=== PATIENT | female | born 1965 | race Caucasian/White ===

== ENCOUNTER 2023-07-09 08:16 | Outpatient (CLI) | payer OTHER, SELFPAY | END 2023-07-09 08:17 | disposition home or self-care (01) | PROVIDERS: PCP Nurse Practitioner Family; Visit Provider Nurse Practitioner Family | DX: N91.2 Amenorrhea, unspecified (principal); I10 Essential (primary) hypertension | CPT/HCPCS: 83001; 85025 ==

== ENCOUNTER 2023-08-08 14:41 | Outpatient (CLI) | payer OTHER, SELFPAY ==
--- NOTE | 2023-08-08 15:00 | US_ITS ---
Patient: PETER VALLADARES Facility:?[facility] Patient ID:?[id number] Site Patient ID:?[id number]. Site :?[id number] Study:?US-Pelvis PELVIS TA & TV-08/08/2023 5:23:03 PM Ordering Physician:KENY LOPEZ Final Report: INDICATION: Postmenopausal bleeding. COMPARISON: None available. FINDINGS: Transvaginal and transabdominal ultrasound examination of the female pelvis was performed. Initial examination is performed with transabdominal technique and transvaginal technique is used for better visualization of the pelvic structures. The uterus is anteverted with multiple small fibroids, without enlargement. It measures 7.1 x 3.1 x 5.2 cm. The largest fibroid is in the left mid fundal region measuring 1.5 x 1.2 x 2.0 centimeters. The next largest fibroid is in the posterior mid fundus with calcifications measuring 1.4 x 1.2 x 1.4 centimeters. An adjacent posterior mid left fibroid measures 0.8 x 0.5 x 0.9 centimeters. There is a superior posterior subserosal fibroid measuring 1.2 x 1.0 x 1.2 centimeters. A superior posterior submucosal fibroid measures 0.8 x 0.7 x 0.8 centimeters. An anterior mid fundal left fibroid measures 0.9 x 1.0 x 1.2 centimeters. None of these fibroids result in distortion of the uterine cavity. The endometrial lining is normal in thickness at 3 mm. There is a small amount of fluid in the uterine cavity. The ovaries are normal in appearance and size, the right measuring 2.8 x 1.4 x 2.2 cm and the left measuring 3.2 x 1.2 x 1 9 cm. There is normal color doppler flow in both ovaries. There is no sign of free fluid in the pelvis. IMPRESSION: 1. Multiple uterine fibroids without enlargement of the uterus or distortion of the uterine cavity. 2. Normal thickness of the endometrial lining. There is a small amount of fluid in the uterine cavity, nonspecific. 3. Normal appearance of the ovaries. Dictated by Riley Bright MD @ 08/09/2023 11:15:02 AM Signed by:?Riley Bright MD @08/09/2023 11:15:02 AM (Electronic Signature)
== END 2023-08-08 14:42 | disposition home or self-care (01) ==
LOC: US 14:41
PROVIDERS: PCP Nurse Practitioner Family; Visit Provider Physician Assistant
DX: N95.0 Postmenopausal bleeding (principal); D25.9 Leiomyoma of uterus, unspecified
CPT/HCPCS: 76830; 76856

== ENCOUNTER 2023-10-09 15:24 | Outpatient (CLI) | payer OTHER, SELFPAY ==
--- NOTE | 2023-10-09 15:40 | CRLHL7_ITS ---
For Patients: As a result of the Cures Act, medical imaging exams and procedure reports are released immediately into your electronic medical record. You may view this report before your referring provider. If you have questions, please contact your health care provider. BILATERAL SCREENING MAMMOGRAM WITH COMPUTER-AIDED DETECTION AND TOMOSYNTHESIS TECHNIQUE: CC and MLO views were obtained. These mammographic images have been obtained using full-field digital technique. These mammographic images were interpreted with the benefit of computer-aided detection. Breast Tomosynthesis was used in this interpretation. COMPARISON FILM: Baseline. FINDINGS: The breasts are heterogeneously dense, which may obscure small masses. The breasts are extremely dense, which lowers the sensitivity of mammography. IMPRESSION: There is no radiographic evidence for malignancy. ASSESSMENT: BI-RADS Category 2: Benign RECOMMENDATION: Routine screening mammogram in 1 year. A lay language report of this examination will be provided to the patient. Kishan Albarado M.D. Diagnostic/Nuclear Medicine Radiologist [email or web address] ODIN/alfonzo SP/Dictated by: Kishan Albarado MD @ 10/11/2023 10:10:00 AM (Electronically Signed)
== END 2023-10-09 15:25 | disposition home or self-care (01) ==
LOC: MAMMO 15:24
PROVIDERS: PCP Nurse Practitioner Family; Visit Provider Nurse Practitioner Family
DX: Z12.31 Encounter for screening mammogram for malignant neoplasm of breast (principal); R92.2 Inconclusive mammogram
CPT/HCPCS: 77063; 77067